=== PATIENT | male | born 1945 | race Caucasian/White ===

== ENCOUNTER → 2016-04-10 | Outpatient (CLI) | payer OTHER ==
[~2016-04-10] MED LIST: AMITRIPTYLINE H10 MG PO; AMITRIPTYLINE H25 MG PO; ATENOLOL100 MG PO; ATENOLOL50 MG PO; BENTYL20 MG PO; BUTALB-APAP-CA1 EACH PO; CATAPRES0.2 MG PO; CLONAZEPAM0.5 MG PO; CLONIDINE HCL0.2 MG PO; CLONIDINE1 EAC1 TD; COZAAR50 MG PO; ERGOCALCIF50000 UNIT PO; FOLIC ACID1 MG PO; HEPARIN SO5000 UNITS SC; KEPPRA1000 MG PO; KEPPRA500 MG PO; LIBRIUM25 MG PO; LISINOPRIL10 MG PO; LORAZEPAM0.5 MG PO; NOVOLOG PE100 UNITS/ SC; OXYCODONE HCL10 MG PO; OXYCODONE-APAP1 EACH PO; PRILOSEC40 MG PO; PROTONIX40 MG PO; TAMSULOSIN HCL0.4 MG PO; TEARS NATURALE-15 ML BOTH EYES; THERAGRAN1 TABLET PO; TPN IV; TYLENOL REGULA325 MG PO; Thiamine,Vitamin B1 PO; VENTOLIN HFA18 GM IH; VITAMIN B-1100 MG PO; VITAMIN D2000 UNIT PO; ZOFRAN ODT4 MG PO
== END ==
LOC: RAD 08:20
DX: K85.90 Acute pancreatitis without necrosis or infection, unspecified (principal); I82.890 Acute embolism and thrombosis of other specified veins; Z98.890 Other specified postprocedural states
CPT/HCPCS: 74177

== ENCOUNTER 2016-10-20 05:39 | Inpatient (IN) | payer OTHER ==
[~2016-10-20] VITALS: Ht 182.9 cm; Wt 89.6 kg
[2016-10-20 06:52] LABS: BASOPHIL COUNT 0.1 K/uL (0-0.1); EOSINOPHIL COUNT 0.1 K/uL (0-0.3); HEMATOCRIT 38.4 % (38.0-50.0); IMMATURE GRANULOCYTE (%) 0.2 % (0.0-0.7); INSTRUMENT ABS NEUTROPHIL CT 2.2 K/uL; LYMPHOCYTE COUNT 1.5 K/uL (1.0-2.8); MCH 32.8 PG (29.0-34.0); MCHC 34.1 G/DL (30.0-36.0); MEAN PLAT.VOLUME 10.9 uM^3 (9.0-12.4); MONOCYTE COUNT 0.5 K/uL (0-0.8); NEUTROPHIL (%) 50.1 % (45-76); NEUTROPHIL COUNT 2.2 K/uL (1.8-6.4); PLATELET COUNT 91 K/uL (156-360); RBC DIS.WIDTH-CV 14.6 % (11.8-14.6); RBC DIS.WIDTH-SD 52.1 % (39-53); WHITE BLOOD COUNT 4.4 K/uL (4.1-10.2)
[2016-10-20 07:18] LABS: ANION GAP 12 MEQ/L (2-14); CHLORIDE 102 MEQ/L (99-109); SAMPLE HEMOLYSIS CHECK 0; SAMPLE ICTERIC CHECK 0; SAMPLE LIPEMIA CHECK 0; SODIUM 140 MEQ/L (136-147); TOTAL BILIRUBIN 0.7 MG/DL (0.0-1.0)
[2016-10-20 07:24] LABS: ALKALINE PHOSPHATASE 141 IU/L (3-129); GFR ESTIMATE (CALCULATED) > 59 mL/min/; GLUCOSE 104 mg/dL (70-99); LIPASE 116 U/L (1.0-51.0); UREA NITROGEN (BUN) 11 mg/dL (9-23)
[2016-10-20] MEDS ORDERED: CLONIDINE HCL0.2 MG PO (11:33)
[2016-10-20] MEDS ORDERED: OXYCONTIN20 MG PO (11:33)
[2016-10-20] MEDS ORDERED: CREON DR 36,001 EACH PO (11:34)
[2016-10-20 13:36] VITALS: BP 188/91
[2016-10-20 14:46] LABS: MAGNESIUM 2.1 mg/dl (1.3-2.7)
[2016-10-20 15:25] VITALS: BP 176/81
[2016-10-20 19:28] VITALS: BP 130/77
[2016-10-20 22:01] LABS: AMYLASE 89 IU/L (1-118)
[2016-10-20 23:40] VITALS: BP 167/74
[2016-10-21 03:56] VITALS: BP 174/8
[2016-10-21 06:27] LABS: EOSINOPHIL (%) 3.1 % (0-5); EOSINOPHIL COUNT 0.1 K/uL (0-0.3); HEMATOCRIT 35.7 % (38.0-50.0); IMMATURE GRANULOCYTE (%) 0.3 % (0.0-0.7); INSTRUMENT ABS NEUTROPHIL CT 1.9 K/uL; LYMPHOCYTE COUNT 1.2 K/uL (1.0-2.8); MCH 33.9 PG (29.0-34.0); MCHC 34.5 G/DL (30.0-36.0); MCV 98.3 FL (86-99); MEAN PLAT.VOLUME 11.3 uM^3 (9.0-12.4); MONOCYTE (%) 10.3 % (3-12); MONOCYTE COUNT 0.4 K/uL (0-0.8); NEUTROPHIL (%) 52.7 % (45-76); NEUTROPHIL COUNT 1.9 K/uL (1.8-6.4); PLATELET COUNT 84 K/uL (156-360); RBC DIS.WIDTH-CV 14.9 % (11.8-14.6); RED BLOOD COUNT 3.63 M/uL (4.00-5.50); WHITE BLOOD COUNT 3.6 K/uL (4.1-10.2)
[2016-10-21 06:50] VITALS: BP 143/81
[2016-10-21 06:57] LABS: ALKALINE PHOSPHATASE 106 IU/L (3-129); ANION GAP 6 MEQ/L (2-14); CHLORIDE 106 MEQ/L (99-109); GFR ESTIMATE (CALCULATED) > 59 mL/min/; GLUCOSE 133 mg/dL (70-99); LIPASE 88 U/L (1.0-51.0); POTASSIUM 3.9 MEQ/L (3.7-5.4); SAMPLE HEMOLYSIS CHECK 0; SAMPLE ICTERIC CHECK 0; SAMPLE LIPEMIA CHECK 0; SODIUM 139 MEQ/L (136-147); TRIGLYCERIDES 82 MG/DL (Normal: <150); UREA NITROGEN (BUN) 11 mg/dL (9-23)
[2016-10-21 11:15] VITALS: BP 141/75
[2016-10-21 15:17] VITALS: BP 156/78
[2016-10-21 19:55] VITALS: BP 140/78
[2016-10-21 23:00] VITALS: BP 157/82
[2016-10-22 03:35] VITALS: BP 172/87
[2016-10-22 07:44] VITALS: BP 150/84
[2016-10-22 10:42] LABS: ANION GAP 5 MEQ/L (2-14); CHLORIDE 105 MEQ/L (99-109); GFR ESTIMATE (CALCULATED) > 59 mL/min/; GLUCOSE 130 mg/dL (70-99); POTASSIUM 4.2 MEQ/L (3.7-5.4); SAMPLE HEMOLYSIS CHECK 2; SAMPLE ICTERIC CHECK 0; SAMPLE LIPEMIA CHECK 0; SODIUM 138 MEQ/L (136-147); UREA NITROGEN (BUN) 9 mg/dL (9-23)
[2016-10-22 11:40] VITALS: BP 168/86
[2016-10-22 13:01] LABS: LIPASE 35 U/L (1.0-51.0)
[2016-10-22 15:57] VITALS: BP 165/93
[2016-10-22 20:01] VITALS: BP 185/90
[2016-10-22 23:25] VITALS: BP 143/80
[2016-10-23 03:28] VITALS: BP 161/89
[2016-10-23 08:11] LABS: ANION GAP 8 MEQ/L (2-14); CHLORIDE 103 MEQ/L (99-109); GFR ESTIMATE (CALCULATED) > 59 mL/min/; GLUCOSE 115 mg/dL (70-99); POTASSIUM 3.5 MEQ/L (3.7-5.4); SAMPLE HEMOLYSIS CHECK 0; SAMPLE ICTERIC CHECK 0; SAMPLE LIPEMIA CHECK 0; SODIUM 137 MEQ/L (136-147); UREA NITROGEN (BUN) 8 mg/dL (9-23)
[2016-10-23 08:17] VITALS: BP 168/79
[2016-10-23 10:14] VITALS: BP 189/98
[2016-10-23 11:50] VITALS: BP 186/91
[2016-10-23 16:02] VITALS: BP 117/73
[2016-10-23 20:22] VITALS: BP 134/71
[2016-10-24 00:45] VITALS: BP 139/65
[2016-10-24 06:38] LABS: ANION GAP 6 MEQ/L (2-14); CHLORIDE 105 MEQ/L (99-109); GFR ESTIMATE (CALCULATED) > 59 mL/min/; GLUCOSE 114 mg/dL (70-99); POTASSIUM 3.8 MEQ/L (3.7-5.4); SAMPLE HEMOLYSIS CHECK 0; SAMPLE ICTERIC CHECK 0; SAMPLE LIPEMIA CHECK 0; SODIUM 139 MEQ/L (136-147); UREA NITROGEN (BUN) 8 mg/dL (9-23)
[2016-10-24 07:44] VITALS: BP 171/83
[2016-10-24 10:47] VITALS: BP 115/64
[2016-10-24 16:49] VITALS: BP 171/86
[2016-10-24 19:33] VITALS: BP 123/73
[2016-10-24 23:07] VITALS: BP 107/61
[2016-10-25 07:36] VITALS: BP 127/73
[2016-10-25 15:47] VITALS: BP 123/73
[2016-10-26] VITALS: BP 121/66
[2016-10-26 07:14] LABS: HEMATOCRIT 31.6 % (38.0-50.0); MCH 34.1 PG (29.0-34.0); MCHC 34.2 G/DL (30.0-36.0); MCV 99.7 FL (86-99); MEAN PLAT.VOLUME 10.2 uM^3 (9.0-12.4); RBC DIS.WIDTH-CV 14.6 % (11.8-14.6); RBC DIS.WIDTH-SD 53.3 % (39-53); RED BLOOD COUNT 3.17 M/uL (4.00-5.50); WHITE BLOOD COUNT 3.8 K/uL (4.1-10.2)
[2016-10-26 07:16] LABS: PLATELET COUNT 153 K/uL (156-360)
[2016-10-26 08:05] VITALS: BP 147/77
[2016-10-26 16:00] VITALS: BP 106/60
[2016-10-26 21:19] VITALS: BP 140/70
[2016-10-26 23:00] VITALS: BP 150/78
[2016-10-27 06:04] LABS: HEMATOCRIT 33.3 % (38.0-50.0); MCH 33.8 PG (29.0-34.0); MCHC 34.2 G/DL (30.0-36.0); MCV 98.8 FL (86-99); MEAN PLAT.VOLUME 10.1 uM^3 (9.0-12.4); PLATELET COUNT 187 K/uL (156-360); RBC DIS.WIDTH-CV 14.4 % (11.8-14.6); RBC DIS.WIDTH-SD 52.3 % (39-53); RED BLOOD COUNT 3.37 M/uL (4.00-5.50); WHITE BLOOD COUNT 3.7 K/uL (4.1-10.2)
[2016-10-27 06:41] LABS: ANION GAP 7 MEQ/L (2-14); CHLORIDE 104 MEQ/L (99-109); GFR ESTIMATE (CALCULATED) > 59 mL/min/; GLUCOSE 105 mg/dL (70-99); POTASSIUM 3.8 MEQ/L (3.7-5.4); SAMPLE HEMOLYSIS CHECK 0; SAMPLE ICTERIC CHECK 0; SAMPLE LIPEMIA CHECK 0; SODIUM 140 MEQ/L (136-147); UREA NITROGEN (BUN) 7 mg/dL (9-23)
[2016-10-27 06:49] VITALS: BP 135/73
[2016-10-27] MEDS ORDERED: BISACODYL5 MG PO (14:19)
[2016-10-27] MEDS ORDERED: DOCUSATE SODIU100 MG PO (14:19)
[2016-10-27] MEDS ORDERED: SUCRALFATE1 GM/10 ML PO (14:19)
[2016-10-27] MEDS ORDERED: FOLIC ACID1 MG PO (14:20)
[2016-10-27] MEDS ORDERED: PANTOPRAZOLE SO40 MG PO (14:20)
[2016-10-27] MEDS ORDERED: Thiamine,Vitamin B1 PO (14:20)
[2016-10-27] MEDS ORDERED: OXYCONTIN20 MG PO ×2 (14:24→15:36)
[2016-10-27] MEDS ORDERED: HYDROMORPHONE HC4 MG PO (15:36)
[2016-10-27 15:38] VITALS: BP 150/76
== END 2016-10-27 17:06 | DRG 439 ==
LOC: EME 05:39 → EDOF 09:51 → ENRESERV 09:56 → EDOF 10:58 → 5EAST 10:58 → ENRESERV 11:01 → 5EAST 13:30
PROVIDERS: Emergency Medicine; Internal Medicine; Specialist
DX: K85.90 Acute pancreatitis without necrosis or infection, unspecified (principal); F11.20 Opioid dependence, uncomplicated; F33.9 Major depressive disorder, recurrent, unspecified; K86.1 Other chronic pancreatitis; K76.0 Fatty (change of) liver, not elsewhere classified; K21.9 Gastro-esophageal reflux disease without esophagitis; J44.9 Chronic obstructive pulmonary disease, unspecified; I10 Essential (primary) hypertension; H66.90 Otitis media, unspecified, unspecified ear; G40.909 Epilepsy, unspecified, not intractable, without status epilepticus; F10.20 Alcohol dependence, uncomplicated; E78.5 Hyperlipidemia, unspecified; D64.9 Anemia, unspecified; D69.59 Other secondary thrombocytopenia; N40.0 Benign prostatic hyperplasia without lower urinary tract symptoms; Z86.73 Personal history of transient ischemic attack (TIA), and cerebral infarction without residual deficits; Z87.891 Personal history of nicotine dependence
CPT/HCPCS: 74177; 76705; 80048; 80053; 82150; 82607; 82746; 83690; 83735; 84478; 85025; 85027; 93005; 99281; 99284; C9113; J0360; J1170; J1650; J2270; J2405; J2765; J3010; J3411; J7030; J7042; J7050; S0028